=== PATIENT | male | born 1950 | race Caucasian/White ===

== ENCOUNTER 2020-04-23 17:02 | Emergency (ER) | payer MEDICARE ==
[~2020-04-23] VITALS: Ht 180.3 cm; Wt 104.3 kg
[2020-04-23] MEDS ORDERED: CARAFATE 1 GM TA1 G1 PO (17:25)
[2020-04-23] MEDS ORDERED: POTASSIUM20 PO (17:26)
[2020-04-23] MEDS ORDERED: LOVASTATIN 20 M20 MG PO (17:26)
[2020-04-23] MEDS ORDERED: ANORO ELLIPTA1 EACH (17:26)
[2020-04-23] MEDS ORDERED: FLOVENT DISKU100 MCG (17:26)
[2020-04-23] MEDS ORDERED: PROAIR HFA8.5 GM INH (17:26)
[2020-04-23] MEDS ORDERED: OMEPRAZOLE40 MG PO (17:27)
[2020-04-23] MEDS ORDERED: FLEXERIL PO (17:27)
[2020-04-23] MEDS ORDERED: ZYRTEC10 M5 PO (17:27)
[2020-04-23] MEDS ORDERED: TOPROL XL25 MG PO (17:27)
[2020-04-23] MEDS ORDERED: NORCO 5-325 TA1 EAC2 PO (20:29)
[2020-04-23 20:36] VITALS: BP 119/64
== END 2020-04-23 20:37 | disposition home or self-care (01) ==
LOC: M.ERS 17:02
DX: M79.605 Pain in left leg (principal); R06.02 Shortness of breath; I48.91 Unspecified atrial fibrillation; I10 Essential (primary) hypertension; Z90.49 Acquired absence of other specified parts of digestive tract; Z79.899 Other long term (current) drug therapy